=== PATIENT | male | born 1960 | race Caucasian/White ===

== ENCOUNTER → 2018-05-01 | Outpatient (CLI) | payer MEDICARE | END | disposition home or self-care (01) | LOC: CFH 06:45 | PROVIDERS: ATTEND Internal Medicine Cardiovascular Disease | DX: I35.8 Other nonrheumatic aortic valve disorders (principal); I21.19 ST elevation (STEMI) myocardial infarction involving other coronary artery of inferior wall; E78.5 Hyperlipidemia, unspecified; I10 Essential (primary) hypertension; I25.10 Atherosclerotic heart disease of native coronary artery without angina pectoris; E11.9 Type 2 diabetes mellitus without complications; I25.2 Old myocardial infarction; Z87.891 Personal history of nicotine dependence; Z95.818 Presence of other cardiac implants and grafts | CPT/HCPCS: 78452; 93017; 93306; A9502 ==